=== PATIENT | female | born 1995 | race American Indian/Alaskan Native ===

== ENCOUNTER 2017-06-05 15:30 | Emergency (ER) | payer MEDICAID ==
--- NOTE | 2017-06-05 16:03 | C.PDOC ---
History Of Present Illness Michelle is a 22 y/o female presenting to the ED with 4 days of dysuria, frequency , and suprapubic cramping. She developed hematuria today, prompting ED visit. Denies any associated fever, nausea, vomiting, constipation, diarrhea, or vaginal bleeding. PMD: Dr. Sherin Valadez Time Seen by Provider: 06/05/17 15:42 Chief Complaint (Nursing): Female Genitourinary History Per: Patient History/Exam Limitations: no limitations Onset/Duration Of Symptoms: Days (x 4) Current Symptoms Are (Timing): Still Present Past Medical History Reviewed: Historical Data, Nursing Documentation, Vital Signs Vital Signs: Last Vital Signs Temp 98.8 F 06/05/17 19:52 Pulse 77 06/05/17 19:52 Resp 20 06/05/17 19:52 BP 141/80 06/05/17 19:52 Pulse Ox 99 06/05/17 20:11 - Medical History PMH: No Chronic Diseases Surgical History: Family History: States: Unknown Family Hx - Social History Hx Tobacco Use: No Hx Alcohol Use: No Hx Substance Use: No - Immunization History Hx Tetanus Toxoid Vaccination: Yes Hx Influenza Vaccination: Yes Hx Pneumococcal Vaccination: Yes Review Of Systems Except As Marked, All Systems Reviewed And Found Negative. Constitutional: Negative for: Fever Gastrointestinal: Positive for: Abdominal Pain (suprapubic cramping). Negative for: Nausea, Vomiting, Diarrhea, Constipation Genitourinary: Positive for: Dysuria, Frequency, Hematuria. Negative for: Vaginal Bleeding Physical Exam - Physical Exam Appears: Non-toxic, No Acute Distress Skin: Normal Color, Warm, Dry Head: Atraumatic, Normacephalic Eye(s): bilateral: Normal Inspection, PERRL, EOMI Oral Mucosa: Moist Neck: Normal, Supple Chest: Symmetrical Cardiovascular: Rhythm Regular, No Murmur Respiratory: Normal Breath Sounds, No Accessory Muscle Use Gastrointestinal/Abdominal: Normal Exam, Bowel Sounds (active), Soft, No Tenderness Back: Normal Inspection, No CVA Tenderness, No Vertebral Tenderness Extremity: Bilateral: Atraumatic, Normal Color And Temperature, Normal ROM Neurological/Psych: Oriented x3, Normal Speech Gait: Steady ED Course And Treatment - Laboratory Results Result Diagrams: 06/05/17 16:40 06/05/17 16:11 O2 Sat by Pulse Oximetry: 99 (RA) Pulse Ox Interpretation: Normal Medical Decision Making Medical Decision Making: Differentials include but are not limited to: UTI vs. renal colic Time: 15:58 Initial Plan: --CMP --CBC w differential --Urine culture --Urine test --Urinalysis --Patient given Tylenol 650 mg PO --Pending reevaluation 4:46PM Poc negative. UA shows leukocytes and 18 wbc consistent with uti, but due to large amount of blood, CT abd/pelvis without contrast ordered to evaluate further. Denies current pain. Resting comfortably. CT ABD/PELVIS: FINDINGS: LIMITATIONS: Mild streak/motion artifact. Artifact related to the patient's body habitus. LOWER THORAX: No infiltrate seen in the lung bases. ABDOMEN: LIVER: No acute abnormality of the liver identified. GALLBLADDER AND BILE DUCTS: No CT evidence of acute cholecystitis. No evidence of significant biliary ductal dilatation. PANCREAS: No CT evidence of acute pancreatitis. SPLEEN: No acute abnormality of the spleen identified. ADRENALS: No acute abnormality of the adrenal glands identified. KIDNEYS AND URETERS:No acute abnormality of the kidneys seen. No renal stones, hydronephrosis, or hydroureter seen. STOMACH AND BOWEL: Rectum is stool filled and mildly dilated, most likely secondary to mild fecal retention/constipation. Otherwise, no significant abnormality of the bowel is identified. No evidence of small or large bowel obstruction. APPENDIX: Appendix is seen, and is within normal limits in appearance. PELVIS: BLADDER: No acute abnormality of the bladder identified. REPRODUCTIVE:No acute abnormality of the reproductive organs is seen. No acute abnormality of the uterus identified. No evidence of large adnexal masses. ABDOMEN and PELVIS: INTRAPERITONEAL SPACE: No evidence of free intraperitoneal air or fluid. BONES/JOINTS: No acute fractures or other acute bony abnormality noted. SOFT TISSUES: No acute abnormality of the visualized soft tissues is seen. VASCULATURE: Best seen on images 66 of series 4 and 148 of series 3, there is a tiny 2 mm calcification in the right pelvis. This was also seen on the prior exam, and is most compatible with a phlebolith adjacent to the bladder. No evidence of abdominal aortic aneurysm. LYMPH NODES: No evidence of diffuse lymphadenopathy. IMPRESSION: - No evidence of significant acute process on this unenhanced exam. There is no evidence of nephrolithiasis or obstructive uropathy. - See above for remaining findings. 7:38PM. Patient is medically stable and will be discharged home with Keflex and Pyridium for bladder spasm. Clinical Impression: UTI Disposition - Disposition Disposition: HOME/ ROUTINE Disposition Time: 19:38 Condition: FAIR Additional Instructions: Follow-up with PMD within 2 days. Take full course of antibiotics. Motrin for pain. Pyridium for bladder spasm. Return to ED with any worsening symptoms. Prescriptions: Cephalexin [Keflex] 500 mg PO BID #14 capsule Phenazopyridine HCl [Pyridium] 100 mg PO TID #20 tablet Instructions: Phenazopyridine (By mouth), Urinary Tract Infection in Women (ED) Forms: [employer] (L[place]uanian) - Clinical Impression Clinical Impression: Hematuria, UTI (urinary tract infection) - Scribe Statement The provider has reviewed the documentation as recorded by the Scribe Bernice Cavazos All medical record entries made by the Scribe were at my direction and personally dictated by me. I have reviewed the chart and agree that the record accurately reflects my personal performance of the history, physical exam, medical decision making, and the department course for this patient. I have also personally directed, reviewed, and agree with the discharge instructions and disposition.
[2017-06-05 16:21] LABS: CHLORIDE 101 mmol/L (98-107)
[2017-06-05 16:22] LABS: POTASSIUM 4.6 mmol/L (3.6-5.2); SODIUM 140 mmol/L (132-148)
[2017-06-05 16:24] LABS: ALB/GLOB RATIO 1.2 (1.0-2.1); ALKALINE PHOSPHATASE 21 U/L (38-126); ALT/SGPT 12 U/L (9-52); AST/SGOT 21 U/L (14-36); BILIRUBIN,TOTAL 0.7 mg/dL (0.2-1.3); BLOOD UREA NITROGEN 11 mg/dL (7-17); CARBON DIOXIDE 23 mmol/L (22-30); GFR AFRICAN-AMERICAN > 60
[2017-06-05 16:25] LABS: CALCIUM 9.6 mg/dl (8.6-10.4); GLUCOSE,RANDOM 99 mg/dL (65-105)
[2017-06-05 16:30] LABS: RBC URINE 1158 /hpf (0-3); URINE BACTERIA OCC (<OCC); URINE BILIRUBIN NEGATIVE (NEGATIVE); URINE BLOOD 3+ (NEGATIVE); URINE COLOR Yellow (YELLOW); URINE GLUCOSE (UA) NORMAL (Normal); URINE KETONE NEGATIVE (NEGATIVE); URINE LEUKOCYTE ESTERASE TRACE Leu/uL (Negative); URINE PROTEIN 1+ mg/dL (NEGATIVE); URINE UROBILINOGEN NORMAL mg/dL (0.2-1.0); WBC URINE 18 /hpf (0-5)
[2017-06-05 16:42] LABS: BASO % 0.4 % (0.0-2.0); EOS # 0.1 K/uL (0.0-0.7); EOS % 0.7 % (0.0-4.0); HEMATOCRIT 37.9 % (34.0-47.0); LYMPH # 3.1 K/uL (1.0-4.3); LYMPH % 37.8 % (20.0-40.0); MEAN CELL VOLUME 84.2 fL (81.0-99.0); MEAN CORPUSCULAR HEMOGLOBIN 28.7 pg (27.0-31.0); MEAN CORPUSCULAR HGB CONC 34.1 g/dL (33.0-37.0); MEAN PLATELET VOLUME 8.5 fL (7.2-11.7); MONO # 0.5 K/uL (0.0-0.8); MONO % 6.7 % (0.0-10.0); NRBC % 0.1 % (0.0-2.0); RED CELL DISTRIBUTION WIDTH 13.2 % (11.5-14.5); WHITE BLOOD COUNT 8.1 K/uL (4.8-10.8)
--- NOTE | 2017-06-05 19:19 | CT ---
EXAM: CT Abdomen and Pelvis Without Intravenous Contrast EXAM DATE/TIME: 06/05/2017 4:44 PM CLINICAL HISTORY: 22 years old, female; Signs and symptoms; Other: Hematuria TECHNIQUE: Axial computed tomography images of the abdomen and pelvis without intravenous contrast. All CT scans at this facility use one or more dose reduction techniques, viz.: automated exposure control; ma/kV adjustment per patient size (including targeted exams where dose is matched to indication; i.e. head); or iterative reconstruction technique. Coronal and sagittal reformatted images were created and reviewed. COMPARISON: Prior CT abdomen and pelvis of 09/01/2014 FINDINGS: LIMITATIONS: Mild streak/motion artifact. Artifact related to the patient's body habitus. LOWER THORAX: No infiltrate seen in the lung bases. ABDOMEN: LIVER: No acute abnormality of the liver identified. GALLBLADDER AND BILE DUCTS: No CT evidence of acute cholecystitis. No evidence of significant biliary ductal dilatation. PANCREAS: No CT evidence of acute pancreatitis. SPLEEN: No acute abnormality of the spleen identified. ADRENALS: No acute abnormality of the adrenal glands identified. KIDNEYS AND URETERS:No acute abnormality of the kidneys seen. No renal stones, hydronephrosis, or hydroureter seen. STOMACH AND BOWEL: Rectum is stool filled and mildly dilated, most likely secondary to mild fecal retention/constipation. Otherwise, no significant abnormality of the bowel is identified. No evidence of small or large bowel obstruction. APPENDIX: Appendix is seen, and is within normal limits in appearance. PELVIS: BLADDER: No acute abnormality of the bladder identified. REPRODUCTIVE:No acute abnormality of the reproductive organs is seen. No acute abnormality of the uterus identified. No evidence of large adnexal masses. ABDOMEN and PELVIS: INTRAPERITONEAL SPACE: No evidence of free intraperitoneal air or fluid. BONES/JOINTS: No acute fractures or other acute bony abnormality noted. SOFT TISSUES: No acute abnormality of the visualized soft tissues is seen. VASCULATURE: Best seen on images 66 of series 4 and 148 of series 3, there is a tiny 2 mm calcification in the right pelvis. This was also seen on the prior exam, and is most compatible with a phlebolith adjacent to the bladder. No evidence of abdominal aortic aneurysm. LYMPH NODES: No evidence of diffuse lymphadenopathy. IMPRESSION: - No evidence of significant acute process on this unenhanced exam. There is no evidence of nephrolithiasis or obstructive uropathy. - See above for remaining findings.
[2017-06-05 19:53] VITALS: BP 141/80; PULSE 77; RESP 20; TEMP 98.8
[2017-06-05 20:11] VITALS: O2SAT 99
== END 2017-06-05 19:52 | disposition home or self-care (01) ==
LOC: C.ER 15:30
DX: N39.0 Urinary tract infection, site not specified (principal)

== ENCOUNTER 2017-06-11 00:17 | Emergency (ER) | payer MEDICAID ==
[2017-06-11 00:36] VITALS: O2SAT 100
--- NOTE | 2017-06-11 01:42 | C.PDOC ---
History Of Present Illness 22 year old female presents to the ED with complaints of sore throat and difficulty swallowing for three days. Patient denies fever or shortness of breath. Chief Complaint (Nursing): Shortness Of Breath History Per: Patient History/Exam Limitations: no limitations Onset/Duration Of Symptoms: Days (3 days ) Current Symptoms Are (Timing): Still Present Location Of Pain: Throat Sick Contacts (Context): None Associated Symptoms: Sore Throat. denies: Fever, Chills Recent travel outside of the [place]: No Past Medical History Reviewed: Historical Data, Nursing Documentation, Vital Signs Vital Signs: Last Vital Signs Temp 98.1 F 06/11/17 00:33 Pulse 108 H 06/11/17 00:33 Resp 20 06/11/17 00:57 BP 135/87 06/11/17 00:33 Pulse Ox 100 06/11/17 02:36 Surgical History: Family History: States: Unknown Family Hx - Social History Hx Tobacco Use: No Hx Alcohol Use: No Hx Substance Use: No - Immunization History Hx Tetanus Toxoid Vaccination: Yes Hx Influenza Vaccination: Yes Hx Pneumococcal Vaccination: Yes Review Of Systems Constitutional: Negative for: Fever, Chills ENT: Positive for: Other (sore throat with some difficulty swallowing ) Cardiovascular: Negative for: Chest Pain, Palpitations Respiratory: Negative for: Cough, Shortness of Breath Gastrointestinal: Negative for: Nausea, Vomiting Physical Exam - Physical Exam Appears: Non-toxic, No Acute Distress Skin: Warm, Dry Head: Atraumatic, Normacephalic Eye(s): bilateral: Normal Inspection, PERRL, EOMI Ear(s): Bilateral: Normal Nose: Normal, No Discharge Oral Mucosa: Moist Throat: No Erythema, No Exudate, Other (minimally congested pharynx) Neck: Normal ROM, Supple Chest: Symmetrical, No Deformity Cardiovascular: Rhythm Regular, No Murmur Respiratory: Normal Breath Sounds, No Rales, No Rhonchi, No Wheezing Gastrointestinal/Abdominal: No Tenderness, No Distention, No Guarding, No Rebound Neurological/Psych: Oriented x3 ED Course And Treatment - Laboratory Results Result Diagrams: 06/11/17 02:04 06/11/17 02:04 O2 Sat by Pulse Oximetry: 100 (RA) Progress Note: Labs were ordered. Disposition Counseled Patient/Family Regarding: Diagnosis - Disposition Referrals: [facility] [Outside] Disposition: HOME/ ROUTINE Disposition Time: 02:34 Condition: STABLE Prescriptions: Amoxicillin [Amoxil 500 mg Cap] 500 mg PO Q8 #14 cap Instructions: Pharyngitis (ED) Forms: [facility] (Citizen [place]) - POA Present On Arrival: None - Clinical Impression Clinical Impression: Pharyngitis - Scribe Statement The provider has reviewed the documentation as recorded by the Scribe Karin Olvera All medical record entries made by the Lizzyibana were at my direction and personally dictated by me. I have reviewed the chart and agree that the record accurately reflects my personal performance of the history, physical exam, medical decision making, and the department course for this patient. I have also personally directed, reviewed, and agree with the discharge instructions and disposition.
[2017-06-11 02:10] LABS: HEMATOCRIT 35.7 % (34.0-47.0); MEAN CELL VOLUME 84.5 fL (81.0-99.0); MEAN CORPUSCULAR HEMOGLOBIN 28.7 pg (27.0-31.0); MEAN CORPUSCULAR HGB CONC 33.9 g/dL (33.0-37.0); MEAN PLATELET VOLUME 8.8 fL (7.2-11.7); RED CELL DISTRIBUTION WIDTH 13.1 % (11.5-14.5); WHITE BLOOD COUNT 7.2 K/uL (4.8-10.8)
[2017-06-11 02:15] LABS: CHLORIDE 102 mmol/L (98-107)
[2017-06-11 02:16] LABS: POTASSIUM 4.6 mmol/L (3.6-5.2); SODIUM 140 mmol/L (132-148)
[2017-06-11 02:19] LABS: ALB/GLOB RATIO 1.2 (1.0-2.1); ALKALINE PHOSPHATASE 24 U/L (38-126); ALT/SGPT 23 U/L (9-52); AST/SGOT 24 U/L (14-36); BILIRUBIN,TOTAL 0.8 mg/dL (0.2-1.3); BLOOD UREA NITROGEN 11 mg/dL (7-17); CALCIUM 8.9 mg/dl (8.6-10.4); CARBON DIOXIDE 20 mmol/L (22-30); GFR AFRICAN-AMERICAN > 60; GLUCOSE,RANDOM 101 mg/dL (65-105)
[2017-06-11 03:02] VITALS: BP 119/70; PULSE 71; RESP 18; TEMP 98
== END 2017-06-11 03:00 | disposition home or self-care (01) ==
LOC: C.ER 00:17
DX: J02.9 Acute pharyngitis, unspecified (principal)

== ENCOUNTER 2017-08-14 15:25 | Emergency (ER) | payer MEDICAID ==
[2017-08-14 15:34] VITALS: BP 112/75; PULSE 85; RESP 20; TEMP 97.8; O2SAT 100
--- NOTE | 2017-08-14 15:59 | C.PDOC ---
History Of Present Illness 27 year old female presents to the ED complaining of constant vaginal burning and discomfort, not necessarily only associated with urination, for 3 days. Patient also complains of yellow discharge that has a fishy odor and mild vaginal itch. Patient states her partner expressed that he has trichomoniasis. Patient denies rash and has not taken any medication. Time Seen by Provider: 08/14/17 15:40 Chief Complaint (Nursing): Female Genitourinary History Per: Patient History/Exam Limitations: no limitations Onset/Duration Of Symptoms: Days Current Symptoms Are (Timing): Still Present Past Medical History Reviewed: Historical Data, Nursing Documentation, Vital Signs Vital Signs: Last Vital Signs Temp 97.8 F 08/14/17 15:31 Pulse 85 08/14/17 15:31 Resp 20 08/14/17 15:31 BP 112/75 08/14/17 15:31 Pulse Ox 100 08/14/17 16:07 - Medical History PMH: No Chronic Diseases Surgical History: Family History: States: Unknown Family Hx - Social History Hx Tobacco Use: No Hx Alcohol Use: No Hx Substance Use: No - Immunization History Hx Tetanus Toxoid Vaccination: No Hx Influenza Vaccination: No Hx Pneumococcal Vaccination: No Review Of Systems Except As Marked, All Systems Reviewed And Found Negative. Constitutional: Negative for: Fever Genitourinary: Positive for: Vaginal Discharge, Other (vaginal burning sensation , vaginal itch). Negative for: Rash Physical Exam - Physical Exam Appears: Well, No Acute Distress Skin: Normal Color Eye(s): bilateral: Normal Inspection Nose: Normal Neck: Normal Neurological/Psych: Oriented x3 ED Course And Treatment O2 Sat by Pulse Oximetry: 100 (RA) Progress Note: Plan: --Urinalysis. --HCG Disposition - Disposition Disposition: HOME/ ROUTINE Disposition Time: 16:45 Condition: STABLE Prescriptions: Metronidazole [Flagyl] 500 mg PO BID #14 tablet Instructions: Trichomoniasis (ED) Forms: [facility] (Turkish), General Discharge Instructions - Clinical Impression Clinical Impression: Trichomonal vaginitis - Scribe Statement The provider has reviewed the documentation as recorded by the Lizzyibe Thomas Acosta Provider Attestation: All medical record entries made by the Lizzyibe were at my direction and personally dictated by me. I have reviewed the chart and agree that the record accurately reflects my personal performance of the history, physical exam, medical decision making, and the department course for this patient. I have also personally directed, reviewed, and agree with the discharge instructions and disposition.
[2017-08-14 16:27] LABS: RBC URINE 11 /hpf (0-3); URINE BILIRUBIN NEGATIVE (NEGATIVE); URINE BLOOD 2+ (NEGATIVE); URINE COLOR Yellow (YELLOW); URINE GLUCOSE (UA) NORMAL (Normal); URINE KETONE NEGATIVE (NEGATIVE); URINE LEUKOCYTE ESTERASE NEG Leu/uL (Negative); URINE PROTEIN 1+ mg/dL (NEGATIVE); WBC URINE 1 /hpf (0-5)
== END 2017-08-14 16:50 | disposition home or self-care (01) ==
LOC: C.ER 15:25
DX: A59.01 Trichomonal vulvovaginitis (principal)

== ENCOUNTER 2017-10-05 11:15 | Emergency (ER) | payer MEDICAID ==
[2017-10-05 11:26] VITALS: RESP 16
[2017-10-05] MEDS ORDERED: Sodium Chloride 0.9% 1,000 ML IV ONE (12:27)
--- NOTE | 2017-10-05 12:45 | C.PDOC ---
History Of Present Illness 22 year old female with PMHx of thyroid problems presents to the ED c/o a cough associated with CP, SOB on exertion for the past 3 days. Patient states she feel the pain mostly in her chest after she coughs, patient also reports she get SOB when she walks and usually has to stop to be able to continue. Patient denies fever, chills, nausea, abdominal pain, headache. Time Seen by Provider: 10/05/17 12:01 Chief Complaint (Nursing): Chest Pain History Per: Patient History/Exam Limitations: no limitations Onset/Duration Of Symptoms: Days Current Symptoms Are (Timing): Still Present Quality: "Pain" Associated Symptoms: Dyspnea Modifying Factors: None Exacerbating Factors: None Recent travel outside of the [place]: No Additional History Per: Patient Past Medical History Reviewed: Historical Data, Nursing Documentation, Vital Signs Vital Signs: Last Vital Signs Temp 97.9 F 10/05/17 18:24 Pulse 83 10/05/17 18:24 Resp 16 10/05/17 18:24 BP 129/86 10/05/17 18:24 Pulse Ox 98 10/05/17 18:24 - Medical History PMH: No Chronic Diseases Surgical History: Family History: States: Unknown Family Hx - Social History Hx Tobacco Use: No Hx Alcohol Use: No Hx Substance Use: No - Immunization History Hx Tetanus Toxoid Vaccination: No Hx Influenza Vaccination: No Hx Pneumococcal Vaccination: No Review Of Systems Constitutional: Negative for: Fever, Chills Cardiovascular: Positive for: Chest Pain Respiratory: Positive for: Cough, SOB with Excertion Gastrointestinal: Negative for: Nausea, Vomiting, Abdominal Pain Skin: Negative for: Rash Neurological: Negative for: Weakness, Numbness, Headache, Dizziness Physical Exam - Physical Exam Appears: Non-toxic, No Acute Distress Skin: Normal Color, Warm, Dry Head: Atraumatic, Normacephalic Eye(s): bilateral: Normal Inspection Nose: No Discharge, No Deformity Oral Mucosa: Moist Throat: Normal, No Erythema, No Exudate Neck: Normal ROM, Supple Chest: Symmetrical Cardiovascular: Rhythm Regular, No Murmur Respiratory: Normal Breath Sounds, No Rales, No Rhonchi, No Wheezing Gastrointestinal/Abdominal: Soft, No Tenderness, No Guarding, No Rebound Extremity: Normal ROM, No Pedal Edema, No Calf Tenderness, No Deformity, No Swelling Neurological/Psych: Oriented x3, Normal Speech, Normal Cognition Gait: Steady ED Course And Treatment - Laboratory Results Result Diagrams: 10/05/17 14:42 10/05/17 14:42 Lab Interpretation: Normal Urine POC: Negative ECG: Interpreted By Ca ECG Rhythm: Sinus Rhythm Rate From EC O2 Sat by Pulse Oximetry: 99 (On RA) Pulse Ox Interpretation: Normal - Radiology CXR: Interpreted by Ca CXR Interpretation: Yes: No Acute Disease - CT Scan/US No standard instances Other Rad Studies (CT/US): Read By Radiologist, Radiology Report Reviewed CT/US Interpretation: FINDINGS: PULMONARY ARTERIES: Examination technically limited. Suboptimal timing relative to contrast bolus. No central pulmonary embolism involving the main and lobar pulmonary arteries. Unable to adequately evaluate segmental and subsegmental pulmonary artery branches. AORTA: No acute findings. No thoracic aortic aneurysm. LUNGS: Unremarkable. No nodule, mass or pulmonary consolidation. PLEURAL SPACES: Unremarkable. No effusion or pneuomothorax. HEART: Unremarkable. No cardiomegaly. No significant pericardial effusion. LYMPH NODES: No lymphadenopathy. BONES, CHEST WALL: Unremarkable. No fracture or destructive lesion. OTHER FINDINGS: Unremarkable. IMPRESSION: Limited examination. No central pulmonary embolism involving the main and lobar pulmonary arteries. Unable to evaluate segmental and subsegmental pulmonary artery branches. No infiltrate/ effusion. Otherwise unremarkable. Progress Note: Treated with IVF NSS Reassessment Condition: Improved Medical Decision Making Medical Decision Making: Impression: cough, chest pain, SOB Plan: * CXR * EKG * UA * Labs * IV fluids * Toradol 30 mg IVP Disposition Counseled Patient/Family Regarding: Studies Performed, Diagnosis, Need For Followup - Disposition Referrals: [facility] [Outside] [facility] [Outside] Disposition: HOME/ ROUTINE Disposition Time: 19:00 Condition: STABLE Additional Instructions: Follow up with PMD or clinic for further evaluation Instructions: Viral Syndrome (ED), Upper Respiratory Infection (ED) Forms: [facility] (Greenlandic) - POA Present On Arrival: None - Clinical Impression Clinical Impression: UTI (urinary tract infection), Cough - PA / PATIENT CARRIER / Resident Statement MD/DO has reviewed & agrees with the documentation as recorded. - Scribe Statement The provider has reviewed the documentation as recorded by the Scribe Terrance Hamm All medical record entries made by the Scribe were at my direction and personally dictated by me. I have reviewed the chart and agree that the record accurately reflects my personal performance of the history, physical exam, medical decision making, and the department course for this patient. I have also personally directed, reviewed, and agree with the discharge instructions and disposition.
--- NOTE | 2017-10-05 13:10 | RAD ---
HISTORY: SOB COMPARISON: None. TECHNIQUE: Chest PA and lateral FINDINGS: LUNGS: No focal consolidation. Please note that chest x-ray has limited sensitivity for the detection of pulmonary masses. PLEURA: No significant pleural effusion identified. No definite pneumothorax . CARDIOVASCULAR: Heart size appears within normal limits. OSSEOUS STRUCTURES: Degenerative changes. VISUALIZED UPPER ABDOMEN: Unremarkable. OTHER FINDINGS: Left nipple rings. IMPRESSION: No focal consolidation, significant pleural effusion, or definite pneumothorax identified.
[2017-10-05 14:34] LABS: HCG,QUALITATIVE URINE NEGATIVE (NEGATIVE)
[2017-10-05 14:40] LABS: SQUAMOUS EPITHIAL 1 /hpf (0-5); URINE BILIRUBIN NEGATIVE (NEGATIVE); URINE BLOOD 1+ (NEGATIVE); URINE CLARITY Clear (Clear); URINE COLOR Straw (YELLOW); URINE GLUCOSE (UA) NORMAL (Normal); URINE LEUKOCYTE ESTERASE NEG Leu/uL (Negative); URINE NITRATE NEGATIVE (NEGATIVE); URINE PROTEIN NEGATIVE (NEGATIVE); URINE UROBILINOGEN NORMAL mg/dL (0.2-1.0)
[2017-10-05 14:48] LABS: BASO % 0.9 % (0.0-2.0); EOS % 0.7 % (0.0-4.0); HEMOGLOBIN 12.5 g/dL (11.0-16.0); LYMPH # 2.3 K/uL (1.0-4.3); LYMPH % 47.6 % (20.0-40.0); MEAN CELL VOLUME 84.1 fL (81.0-99.0); MEAN CORPUSCULAR HGB CONC 34.4 g/dL (33.0-37.0); MEAN PLATELET VOLUME 8.6 fL (7.2-11.7); MONO # 0.3 K/uL (0.0-0.8); MONO % 5.3 % (0.0-10.0); NEUT # 2.2 K/uL (1.8-7.0); NEUT % 45.5 % (50.0-75.0); NRBC % 0.1 % (0.0-2.0); RBC 4.33 Mil/uL (3.80-5.20); RED CELL DISTRIBUTION WIDTH 12.7 % (11.5-14.5); WHITE BLOOD COUNT 4.9 K/uL (4.8-10.8)
[2017-10-05 15:13] LABS: ALB/GLOB RATIO 1.1 (1.0-2.1); ALBUMIN 4.4 g/dL (3.5-5.0); ALT/SGPT 18 U/L (9-52); AST/SGOT 18 U/L (14-36); BLOOD UREA NITROGEN 9 mg/dL (7-17); CALCIUM 9.2 mg/dl (8.6-10.4); GFR AFRICAN-AMERICAN > 60; GFR NON-AFRICAN AMERICAN > 60; LIPASE 59 U/L (23-300)
[2017-10-05] MEDS ORDERED: Iodixanol 320 MG/ML 100 ML BOTTLE IV ONE (17:27)
[2017-10-05 18:24] VITALS: BP 129/86; PULSE 83; TEMP 97.9
--- NOTE | 2017-10-05 18:57 | CT ---
PROCEDURE: CT Chest with contrast (Pulmonary Angiogram) HISTORY: dyspnea COMPARISON: None available. TECHNIQUE: Axial computed tomography images were obtained of the chest in the pulmonary arterial phase of enhancement. Coronal and sagittal reformatted images were created and reviewed. Intravenous contrast dose: 100 mL Visipaque 320 Radiation dose: Total exam DLP = 539.07 mGy-cm. This CT exam was performed using one or more of the following dose reduction techniques: Automated exposure control, adjustment of the mA and/or kV according to patient size, and/or use of iterative reconstruction technique. FINDINGS: PULMONARY ARTERIES: Examination technically limited. Suboptimal timing relative to contrast bolus. No central pulmonary embolism involving the main and lobar pulmonary arteries. Unable to adequately evaluate segmental and subsegmental pulmonary artery branches. AORTA: No acute findings. No thoracic aortic aneurysm. LUNGS: Unremarkable. No nodule, mass or pulmonary consolidation. PLEURAL SPACES: Unremarkable. No effusion or pneuomothorax. HEART: Unremarkable. No cardiomegaly. No significant pericardial effusion. LYMPH NODES: No lymphadenopathy. BONES, CHEST WALL: Unremarkable. No fracture or destructive lesion OTHER FINDINGS: Unremarkable. IMPRESSION: Limited examination. No central pulmonary embolism involving the main and lobar pulmonary arteries. Unable to evaluate segmental and subsegmental pulmonary artery branches. No infiltrate/ effusion. Otherwise unremarkable.
[2017-10-05 19:02] VITALS: O2SAT 99
--- NOTE | 2017-10-06 12:36 | CARD ---
APPROVED REPORT EKG Measurement Heart [id number] <Conclusion> Normal sinus rhythm with sinus arrhythmia Normal ECG
== END 2017-10-05 19:15 | disposition home or self-care (01) ==
LOC: C.ER 11:15
DX: R05 Cough (principal)
CPT/HCPCS: 71046; 71275; 80053; 81001; 83690; 84703; 85025; 85378; 93005; 99285; J7040; Q9967

== ENCOUNTER 2017-10-06 11:52 | Emergency (ER) | payer MEDICAID ==
[2017-10-06 12:01] VITALS: BMI 38.9
--- NOTE | 2017-10-06 13:01 | C.PDOC ---
History Of Present Illness 22 y/o female presents to ED with cp, sob sometimes, pain when moving arm, hard to breath, seen in ED yesterday for same; pt had ddimer of 354, had chest cta with limited study. no pe in large vessels, neg cxr, normal ekg. pt did not take meds for pain. pt with recently diagnosed thyroid nodule, had us of thyroid yesterday and f/u appt Dr Coon next week. No other complaints at this time. Time Seen by Provider: 10/06/17 12:18 Chief Complaint (Nursing): Chest Pain History Per: Patient History/Exam Limitations: no limitations Onset/Duration Of Symptoms: Days Current Symptoms Are (Timing): Still Present Quality: "Pain" Past Medical History Reviewed: Historical Data, Nursing Documentation, Vital Signs Vital Signs: Last Vital Signs Temp 98.0 F 10/06/17 13:36 Pulse 70 10/06/17 13:36 Resp 18 10/06/17 13:36 BP 128/86 10/06/17 13:36 Pulse Ox 100 10/10/17 20:50 - Medical History PMH: No Chronic Diseases Surgical History: No Surg Hx, Family History: States: No Known Family Hx - Social History Hx Tobacco Use: No Hx Alcohol Use: No Hx Substance Use: No - Immunization History Hx Tetanus Toxoid Vaccination: No Hx Influenza Vaccination: No Hx Pneumococcal Vaccination: No Review Of Systems Constitutional: Negative for: Fever, Chills Cardiovascular: Positive for: Chest Pain Respiratory: Negative for: Cough Gastrointestinal: Negative for: Nausea, Vomiting Musculoskeletal: Positive for: Shoulder Pain Skin: Negative for: Rash Physical Exam - Physical Exam Appears: Non-toxic, No Acute Distress, Other (lying comfortbly on stretcher, talking with friend) Skin: Warm, Dry, No Rash Head: Atraumatic, Normacephalic Eye(s): bilateral: Normal Inspection Oral Mucosa: Moist Neck: Normal ROM, Supple Chest: No Deformity, Tenderness (reproducible left chest wall tenderness) Cardiovascular: Rhythm Regular, No Murmur Respiratory: Normal Breath Sounds, No Rales, No Rhonchi, No Wheezing Gastrointestinal/Abdominal: Soft, No Tenderness, No Guarding, No Rebound Extremity: Normal ROM, No Pedal Edema, No Calf Tenderness, Capillary Refill (<2 seconds) Neurological/Psych: Oriented x3, Normal Speech, Normal Cognition ED Course And Treatment - Laboratory Results Urine POC: Negative (done yesterday) ECG: Interpreted By Me, Viewed By Me ECG Rhythm: Sinus Rhythm ECG Interpretation: Normal Interpretation Of ECG: nsr no acute st-t changes Rate From EC O2 Sat by Pulse Oximetry: 100 (RA) Medical Decision Making Medical Decision Making: pt with cp, sob sometimes, pain when moving arm, hard to breath, seen in ED yesterday for same; pt had ddimer of 354, had chest cta with limited stufy. no pe inlarge vessels, neg cxr, normal ekg. pt did not take meds for pain. pt with recently diagnosed thyroid nodule, had us of thyroid yesterday and f/u appt Dr Coon next week. pt in no acute distress, normal heart and lung exam, tender to left chest wall. will d/c with pmd and ent f/u. Disposition Counseled Patient/Family Regarding: Diagnosis - Disposition Referrals: Doug Coon MD [Staff Provider] - Sherin Valadez MD [Staff Provider] - Disposition: HOME/ ROUTINE Disposition Time: 13:27 Condition: STABLE Additional Instructions: Please take ibuprofen or tylenol for pain if needed. 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 - Scribe Statement The provider has reviewed the documentation as recorded by the Scribana Hernandez All medical record entries made by the Lizzyibana were at my direction and personally dictated by me. I have reviewed the chart and agree that the record accurately reflects my personal performance of the history, physical exam, medical decision making, and the department course for this patient. I have also personally directed, reviewed, and agree with the discharge instructions and disposition.
[2017-10-06 13:37] VITALS: BP 128/86; PULSE 70; RESP 18; TEMP 98
[2017-10-06 15:45] VITALS: O2SAT 100
--- NOTE | 2017-10-06 20:51 | CARD ---
APPROVED REPORT EKG Measurement Heart [id number] <Conclusion> Normal sinus rhythm Normal ECG
== END 2017-10-06 13:50 | disposition home or self-care (01) ==
LOC: C.ER 11:52
DX: R07.89 Other chest pain (principal)

== ENCOUNTER 2017-10-15 19:06 | Emergency (ER) | payer MEDICAID ==
[2017-10-15 19:06] VITALS: BMI 38.9
[2017-10-15 19:16] VITALS: O2SAT 97
--- NOTE | 2017-10-15 20:24 | C.PDOC ---
History Of Present Illness 41 y/o male presents to ED with c/o headache and multiple vague complaints. Pt states she fainted while laying in bed. She states laying in bed made her feel sick, so she stood up. 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 It is the pt's 7th ER visit in the last 60 days. Pt previously had multiple complaints of belly pain, chest pain, and neck pain. Pt's previous evaluations included multiple CT's and extensive lab testings which were all negative. Time Seen by Provider: 10/15/17 20:10 Chief Complaint (Nursing): Headache History Per: Patient History/Exam Limitations: no limitations Onset/Duration Of Symptoms: Hrs Current Symptoms Are (Timing): Still Present Preceeding Symptoms: None Recent travel outside of the [place]: No Past Medical History Reviewed: Historical Data, Nursing Documentation, Vital Signs Vital Signs: Last Vital Signs Temp 98.2 F 10/15/17 20:30 Pulse 88 10/15/17 20:30 Resp 18 10/15/17 20:30 BP 119/70 10/15/17 20:30 Pulse Ox 97 10/16/17 00:29 - Medical History PMH: No Chronic Diseases Surgical History: Family History: States: Unknown Family Hx - Social History Hx Tobacco Use: No Hx Alcohol Use: No Hx Substance Use: No - Immunization History Hx Tetanus Toxoid Vaccination: No Hx Influenza Vaccination: No Hx Pneumococcal Vaccination: No Review Of Systems Constitutional: Positive for: Other (fainted while laying in bed). Negative for : Fever Cardiovascular: Negative for: Chest Pain, Palpitations Gastrointestinal: Negative for: Nausea, Vomiting, Abdominal Pain, Diarrhea Skin: Negative for: Rash Neurological: Positive for: Headache. Negative for: Weakness, Numbness Physical Exam - Physical Exam Appears: Well, Non-toxic, No Acute Distress, Other (laughing) Skin: Normal Color, Warm, Dry Head: Atraumatic, Normacephalic Eye(s): bilateral: Normal Inspection Oral Mucosa: Moist Neck: Supple Chest: Symmetrical, No Tenderness Cardiovascular: Rhythm Regular Respiratory: Normal Breath Sounds, No Decreased Breath Sounds, No Rales, No Rhonchi, No Wheezing Gastrointestinal/Abdominal: Soft, No Tenderness, No Distention, No Guarding, No Rebound Extremity: Normal ROM, No Tenderness, No Pedal Edema Extremity: Bilateral: Normal Color And Temperature, Normal ROM Neurological/Psych: Oriented x3, Normal Speech, Normal Cognition ED Course And Treatment O2 Sat by Pulse Oximetry: 97 (RA) Pulse Ox Interpretation: Normal Medical Decision Making Medical Decision Making: Ordered EKG and administered Tylenol. ? headache but asymptomatic now, completely normal eval. 7th ED visit in the past 2 months- all workups neg pending upper endoscopy by GI soon, already scheduled. 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 Multiple complete workups including extensive labs, soft tissue neck, thyroid studies, CT abd/pelvis x 2, CTA-Chest, all neg in past 2 months. LOW suspicion of acute new serious medical issue without any significant findings nor physical findings. Defer repeat workup now (to pt's dissatisfaction) and opt f/u. Pt demanding further workup. The repeated lab test and CT scan were extensively educated and discussed with . Pt is stable for discharge without repeated workup. Disposition Doctor Will See Patient In The: Office Counseled Patient/Family Regarding: Studies Performed, Diagnosis - Disposition Referrals: [facility] [Outside] [facility] [Outside] Sherin Valadez MD [Staff Provider] - Disposition: HOME/ ROUTINE Disposition Time: 20:24 Condition: GOOD Additional Instructions: please take tylenol for your headache pains as needed Follow-up in our outpatient Family Practice Clinic as needed. Consider follow-up with our outpatient psych resources for your anxiety issues. Instructions: Acute Headache (ED), Anxiety (ED) Forms: [facility] (Jordanian) - Clinical Impression Clinical Impression: Headache - Scribe Statement The provider has reviewed the documentation as recorded by the Scribana Marlow All medical record entries made by the Scribe were at my direction and personally dictated by me. I have reviewed the chart and agree that the record accurately reflects my personal performance of the history, physical exam, medical decision making, and the department course for this patient. I have also personally directed, reviewed, and agree with the discharge instructions and disposition.
[2017-10-15 20:50] VITALS: BP 119/70; PULSE 88; RESP 18; TEMP 98.2
== END 2017-10-15 21:20 | disposition home or self-care (01) ==
LOC: C.ER 19:06
DX: R51 Headache (principal)

== ENCOUNTER 2017-10-24 10:24 | Day surgery (SDC) | payer MEDICAID ==
[2017-10-21 14:47] VITALS: BMI 38.0
[2017-10-24 11:18] VITALS: O2SAT 100
[2017-10-24] MEDS ORDERED: Propofol 10 mg/ml Inj (20 ML) ONE (12:05)
[2017-10-24] MEDS ORDERED: Lactated Ringer's 500 ML IV SCH (12:15)
[2017-10-24 12:46] VITALS: TEMP 97.2
[2017-10-24 13:34] VITALS: BP 121/70; PULSE 65; RESP 17
== END 2017-10-24 13:29 | disposition home or self-care (01) ==
LOC: C.ENDO 10:24
PROVIDERS: ATTEND Internal Medicine
DX: K21.9 Gastro-esophageal reflux disease without esophagitis (principal); K29.70 Gastritis, unspecified, without bleeding; E66.9 Obesity, unspecified; Z68.39 Body mass index [BMI] 39.0-39.9, adult
CPT/HCPCS: 43239; 84703; 88305; 88342; J2704; J7120

== ENCOUNTER 2017-11-10 00:12 | Emergency (ER) | payer MEDICAID ==
[2017-11-10 00:12] VITALS: BMI 38.0
[2017-11-10 00:23] VITALS: BP 95/63; PULSE 89; RESP 20; TEMP 97.9; O2SAT 100
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
== END 2017-11-10 02:23 | disposition home or self-care (01) ==
LOC: C.ER 00:12
DX: R07.89 Other chest pain (principal); V89.2XXA Person injured in unspecified motor-vehicle accident, traffic, initial encounter

== ENCOUNTER 2018-02-16 13:06 | Emergency (ER) | payer MEDICAID ==
[2018-02-16 13:06] VITALS: BMI 38.0
[2018-02-16 13:26] VITALS: BP 99/58; PULSE 75; RESP 20; TEMP 98.4; O2SAT 100
--- NOTE | 2018-02-16 15:23 | C.PDOC ---
History Of Present Illness 23 y/o female presents to the ED complaining of headache for 1 week. Patient states it is not the worst headache of her life. Pain had gradual onset and is localized behind her left eye. Associated with mild photophobia. Denies any trauma, nausea, vomiting, neck stiffness/pain, blurred vision, or fever. Time Seen by Provider: 02/16/18 13:29 Chief Complaint (Nursing): Headache History Per: Patient History/Exam Limitations: no limitations Onset/Duration Of Symptoms: Days Current Symptoms Are (Timing): Still Present Past Medical History Reviewed: Historical Data, Nursing Documentation, Vital Signs Vital Signs: Last Vital Signs Temp 98.4 F 02/16/18 13:22 Pulse 75 02/16/18 13:22 Resp 20 02/16/18 13:22 BP 99/58 L 02/16/18 13:22 Pulse Ox 100 02/16/18 15:28 - Medical History PMH: Asthma ("maybe asthma"), Pneumonia (2012) Denies: Chronic Kidney Disease Surgical History: Family History: States: Unknown Family Hx - Social History Hx Tobacco Use: No Hx Alcohol Use: No Hx Substance Use: No - Immunization History Hx Tetanus Toxoid Vaccination: No Hx Influenza Vaccination: No Hx Pneumococcal Vaccination: No Review Of Systems Constitutional: Negative for: Fever, Chills Eyes: Negative for: Vision Change Gastrointestinal: Negative for: Nausea, Vomiting Musculoskeletal: Negative for: Neck Pain Neurological: Positive for: Headache. Negative for: Weakness, Numbness, Change in Speech, Dizziness Physical Exam - Physical Exam Appears: Well, Non-toxic, No Acute Distress Skin: Normal Color, Warm, Dry Head: Atraumatic, Normacephalic Eye(s): bilateral: Normal Inspection, PERRL, EOMI Nose: Normal Oral Mucosa: Moist Neck: Normal ROM, No Midline Cervical Tenderness, Supple, No Other (meningeal signs) Chest: Symmetrical Cardiovascular: Rhythm Regular Respiratory: No Accessory Muscle Use Extremity: Normal ROM, No Tenderness, No Deformity, No Swelling Pulses: Left Dorsalis Pedis: Normal, Right Dorsalis Pedis: Normal Neurological/Psych: Oriented x3, Normal Speech, Normal Cranial Nerves, Other ( No focal deficits) ED Course And Treatment O2 Sat by Pulse Oximetry: 100 (RA) Pulse Ox Interpretation: Normal Medical Decision Making Medical Decision Making: Impression: Gradual onset headache x 1 week Plan: Patient will be discharged home, provided with prescription for cyclobenzaprine. Counseled patient regarding diagnosis and the need to follow up. Patient agrees with discharge plan and will return to the ER for any worsening symptoms. Disposition Counseled Patient/Family Regarding: Diagnosis, Need For Followup, Rx Given - Disposition Referrals: Daniella Price, [Non-Staff] - Disposition: HOME/ ROUTINE Disposition Time: 13:35 Condition: GOOD Additional Instructions: DAVID BORJAS, thank you for letting us take care of you today. Your provider was Arun Pastrana DO and you were treated for HEADACHE. The emergency medical care you received today was directed at your acute symptoms. If you were prescribed any medication, please fill it and take as directed. It may take several days for your symptoms to resolve. Return to the Emergency Department if your symptoms worsen, do not improve, or if you have any other problems. Please contact your doctor or call one of the physicians/clinics you have been referred to that are listed on the Patient Visit Information form that is included in your discharge packet. Bring any paperwork you were given at discharge with you along with any medications you are taking to your follow up visit. Our treatment cannot replace ongoing medical care by a primary care provider outside of the emergency department. Thank you for allowing the [facility] team to be part of your care today. Follow up with your primary care doctor in 2-3 days for re-evaluation and further management. Prescriptions: Cyclobenzaprine [Cyclobenzaprine HCl] 10 mg PO Q8 PRN #20 tab PRN Reason: Muscle Spasm Instructions: Tension Headache (DC) Forms: [employer] (Emirati) - POA Present On Arrival: None - Clinical Impression Clinical Impression: Headache - Scribe Statement The provider has reviewed the documentation as recorded by the Scribe (Bernice Cavazos) Provider Attestation: All medical record entries made by the Scribe were at my direction and personally dictated by me. I have reviewed the chart and agree that the record accurately reflects my personal performance of the history, physical exam, medical decision making, and the department course for this patient. I have also personally directed, reviewed, and agree with the discharge instructions and disposition.
== END 2018-02-16 13:54 | disposition home or self-care (01) ==
LOC: C.ER 13:06
DX: R51 Headache (principal)

== ENCOUNTER 2018-02-24 09:40 | Day surgery (SDC) | payer MEDICAID ==
[2018-02-24] MEDS ORDERED: Propofol 10 mg/ml Inj (20 ML) ONE ×3 (10:29→10:46)
[2018-02-24 11:45] VITALS: RESP 16; O2SAT 100
[2018-02-24 12:43] VITALS: BP 117/64; PULSE 60; TEMP 97
== END 2018-02-24 12:00 | disposition home or self-care (01) ==
LOC: C.ENDO 09:40
PROVIDERS: ATTEND Internal Medicine
DX: R19.7 Diarrhea, unspecified (principal); K52.9 Noninfective gastroenteritis and colitis, unspecified; R10.12 Left upper quadrant pain
CPT/HCPCS: 45384; 84703; 88305; 88313; 88342; J2704; J3010

== ENCOUNTER 2018-05-07 17:20 | Emergency (ER) | payer MEDICAID ==
[2018-05-07 17:21] VITALS: BMI 38.0
[2018-05-07 17:58] LABS: SQUAMOUS EPITHIAL 5 /hpf (0-5); URINE BILIRUBIN NEGATIVE (NEGATIVE); URINE BLOOD 1+ (NEGATIVE); URINE CLARITY Clear (Clear); URINE COLOR Yellow (YELLOW); URINE GLUCOSE (UA) NORMAL (Normal); URINE LEUKOCYTE ESTERASE NEG Leu/uL (Negative); URINE PROTEIN NEGATIVE (NEGATIVE); URINE UROBILINOGEN NORMAL mg/dL (0.2-1.0)
[2018-05-07 18:15] LABS: BASO # 0.1 K/uL (0.0-0.2); BASO % 0.7 % (0.0-2.0); EOS # 0.1 K/uL (0.0-0.7); EOS % 1.1 % (0.0-4.0); HEMOGLOBIN 11.7 g/dL (11.0-16.0); LYMPH # 3.1 K/uL (1.0-4.3); LYMPH % 46.4 % (20.0-40.0); MEAN CORPUSCULAR HGB CONC 34.1 g/dL (33.0-37.0); MONO # 0.6 K/uL (0.0-0.8); MONO % 8.3 % (0.0-10.0); NEUT # 2.9 K/uL (1.8-7.0); NEUT % 43.5 % (50.0-75.0); NRBC % 0.1 % (0.0-2.0); RBC 4.17 Mil/uL (3.80-5.20); RED CELL DISTRIBUTION WIDTH 13.1 % (11.5-14.5); WHITE BLOOD COUNT 6.8 K/uL (4.8-10.8)
[2018-05-07 18:23] LABS: BARBITURATES, UR NEGATIVE (NEGATIVE); BENZODIAZEPINES, UR NEGATIVE (NEGATIVE); OPIATES, UR NEGATIVE (NEGATIVE); PHENCYCLIDINE, UR NEGATIVE (NEGATIVE)
[2018-05-07 18:25] LABS: ALB/GLOB RATIO 1.2 (1.0-2.1); ALBUMIN 4.2 g/dL (3.5-5.0); ALT/SGPT 20 U/L (9-52); AST/SGOT 16 U/L (14-36); BLOOD UREA NITROGEN 15 mg/dL (7-17); CALCIUM 9.2 mg/dl (8.6-10.4); GFR NON-AFRICAN AMERICAN > 60; LIPASE 67 U/L (23-300)
--- NOTE | 2018-05-07 18:29 | C.PDOC ---
History Of Present Illness 23-year-old female presents to the ED for evaluation of crampy left-sided abdominal pain. Patient has had many prior evaluations for similar symptoms. She denies fever, chills. Time Seen by Provider: 05/07/18 17:31 Chief Complaint (Nursing): Abdominal Pain History Per: Patient History/Exam Limitations: no limitations Onset/Duration Of Symptoms: Hrs Current Symptoms Are (Timing): Still Present Location Of Pain/Discomfort: Other (left-sided) Radiation Of Pain To:: None Quality Of Discomfort: Cramping, "Pain" Associated Symptoms: denies: Fever, Chills Past Medical History Reviewed: Historical Data, Nursing Documentation, Vital Signs Vital Signs: Last Vital Signs Temp 98.1 F 05/07/18 18:44 Pulse 84 05/07/18 18:44 Resp 17 05/07/18 18:44 BP 105/72 05/07/18 18:44 Pulse Ox 97 05/07/18 18:44 - Medical History PMH: Asthma ("maybe asthma"), Pneumonia (2012) Denies: Chronic Kidney Disease Surgical History: Endoscopy, Family History: States: Unknown Family Hx - Social History Hx Tobacco Use: No Hx Alcohol Use: No Hx Substance Use: No - Immunization History Hx Tetanus Toxoid Vaccination: No Hx Influenza Vaccination: No Hx Pneumococcal Vaccination: No Review Of Systems Constitutional: Negative for: Fever, Chills Gastrointestinal: Positive for: Abdominal Pain (left-sided ) Physical Exam - Physical Exam Appears: Non-toxic, No Acute Distress, Other (morbidly obese Black female ) Skin: Normal Color, Warm, Dry Head: Atraumatic, Normacephalic Eye(s): bilateral: Normal Inspection Oral Mucosa: Moist Neck: Supple Chest: Symmetrical, No Deformity, No Tenderness Cardiovascular: Rhythm Regular, No Murmur Respiratory: Normal Breath Sounds, No Rales, No Rhonchi, No Wheezing Gastrointestinal/Abdominal: Soft, No Tenderness, No Guarding, No Rebound, Other (right abdomen is dull to percussion, left abdomen is tympanic to percussion. negative Best's signs and McBurney's point tenderness ) Extremity: Normal ROM, Capillary Refill (less than 2 seconds ) Neurological/Psych: Oriented x3, Normal Speech, Normal Cognition ED Course And Treatment - Laboratory Results Result Diagrams: 05/07/18 18:05 05/07/18 18:05 Lab Interpretation: Normal (UA neg.) Urine POC: Negative O2 Sat by Pulse Oximetry: 96 (on RA ) Pulse Ox Interpretation: Normal - Radiology CXR: Interpreted by Me CXR Interpretation: Yes: No Acute Disease - Other Rad abd x 2 X-Ray: Interpreted by Me (+ increased stool R side, increased gas L side.) Progress Note: Bloodwork, urinalysis, Obstructive Series XR ordered. Medical Decision Making Medical Decision Making: abd colic, increased stool R colon suggest chronic constipation and slow transit , increased gas L colon suggest same. no osbt/FA Disposition Doctor Will See Patient In The: Office Counseled Patient/Family Regarding: Studies Performed, Diagnosis - Disposition Referrals: [facility] [Outside] [facility] [Outside] [facility] [Outside] [facility] [Outside] Disposition: HOME/ ROUTINE Disposition Time: 18:30 Condition: GOOD Additional Instructions: normal eval today increased gas and stool in bowels consider a laxative now and re-evaluate after using the bathroom 2-3 times diet and exercise modifications to decrease bowel transit times. follow-up in our outpatient Family Practice Clinic as needed. Instructions: Constipation, Adult (DC), Gas and Bloating (ED) Forms: [facility] (Kittitian) - Clinical Impression Clinical Impression: Colicky LLQ abdominal pain - Scribe Statement The provider has reviewed the documentation as recorded by the Scribe (Shahida Reilly) Provider Attestation: All medical record entries made by the Scribe were at my direction and personally dictated by me. I have reviewed the chart and agree that the record accurately reflects my personal performance of the history, physical exam, medical decision making, and the department course for this patient. I have also personally directed, reviewed, and agree with the discharge instructions and disposition.
[2018-05-07 18:45] VITALS: BP 105/72; PULSE 84; RESP 17; TEMP 98.1
[2018-05-07 22:49] VITALS: O2SAT 96
--- NOTE | 2018-05-08 10:22 | RAD ---
Date of service: 05/07/2018 PROCEDURE: Radiographs of the chest and abdomen (obstructive series) HISTORY: abd pain COMPARISON: No prior. TECHNIQUE: AP radiograph of the chest, with upright and supine radiographs of the abdomen. FINDINGS: CHEST: Lungs: The lungs are well inflated and clear. Cardiovascular: Normal size heart. No pulmonary vascular congestion. Pleura: No pleural fluid. No pneumothorax. Other findings: None. ABDOMEN AND PELVIS: Bowel: There is small amount of stool in the ascending colon. No evidence of mechanical obstruction. Normal caliber gas filled transverse and descending colon. Free air: None. Bones: Unremarkable. Other findings: None. IMPRESSION: Nonobstructive bowel gas pattern. Clear lungs.
== END 2018-05-07 18:44 | disposition home or self-care (01) ==
LOC: C.ER 17:20
DX: R10.32 Left lower quadrant pain (principal)

== ENCOUNTER 2018-12-14 09:02 | Outpatient (CLI) | payer MEDICAID | END 2018-12-14 09:03 | disposition home or self-care (01) | LOC: C.CTH 09:02 | DX: J32.9 Chronic sinusitis, unspecified (principal); J34.2 Deviated nasal septum ==